=== PATIENT | female | born 1950 | race Caucasian/White ===

== ENCOUNTER 2023-02-24 14:16 | Inpatient (IN) | payer MEDICARE, OTHER ==
[2023-02-24 16:38] VITALS: BMI 27.6
[2023-02-24] MEDS ORDERED: Acetaminophen 325 MG TAB PO PRN (16:46)
[2023-02-24] MEDS ORDERED: Acetaminophen 650 MG Suppository PR PRN (16:46)
[2023-02-24] MEDS ORDERED: Ondansetron PF 4 MG/2 ML Vial IVP PRN (16:46)
[2023-02-24] MEDS ORDERED: Ondansetron ODT 4 MG TAB PO PRN ×2 (16:46→17:55)
[2023-02-24] MEDS ORDERED: Acetaminophen/Codeine 30-300mg Tablet PO PRN (17:55)
[2023-02-24] MEDS ORDERED: EPOETIN ALFA-EPBX (ESRD) 40,000 UNITS/ML VIAL SC SCH (20:00)
[2023-02-24] MEDS: Rosuvastatin 10 MG TAB PO SCH (20:17)
[2023-02-24] MEDS: Carvedilol 25 MG TAB PO SCH (20:17)
[2023-02-24] MEDS: Tacrolimus 1 MG CAP PO SCH (20:17)
[2023-02-24] MEDS ORDERED: Lorazepam 1 MG TAB PO SCH (21:00)
[2023-02-25 01:23] LABS: Troponin I 0.119 ng/mL (< 0.028)
[2023-02-25 05:55] LABS: Hematocrit 24.4 % (36.0-47.0); Hemoglobin 8.5 g/dL (12.0-16.0); Mean Corpuscular HGB CONC 34.8 g/dL (32.0-36.0); Mean Corpuscular Hemoglobin 33.9 pg (27.0-31.0); Mean Platelet Volume 12.1 fL (7.4-10.4); Platelet Count 99 10x3/uL (130-400); RBC Distribution Width 21.6 % (11.5-14.5); Red Blood Cell (RBC) Count 2.51 mill/uL (4.20-5.40); White Blood Cell (WBC) Count 13.1 10x3/uL (4.8-10.8)
[2023-02-25 06:05] LABS: Manual Diff?? YES
[2023-02-25 06:06] LABS: Delete Auto Diff?? YES; Mean Corpuscular Volume 97.2 fl (78.0-98.0)
[2023-02-25 06:18] LABS: Anion Gap 12 mmol/L (10-20); Calc. Creatinine Clearance 35 mL/min (70-130); Calcium 9.1 mg/dL (7.8-10.44); Carbon Dioxide 21 mmol/L (23-31); Chloride 107 mmol/L (98-107); Estimated GFR 32; Glucose 127 mg/dL (83-110); Potassium 4.2 mmol/L (3.5-5.1); Sodium 136 mmol/L (136-145)
[2023-02-25 06:24] LABS: Troponin I 0.112 ng/mL (< 0.028)
[2023-02-25 06:29] LABS: Anisocytosis MODERATE=16-30 cells HPF (0-5); CellaVision Operator ID lab.sh2; Lymphocytes 5 % (21-51); Monocytes 4 % (0-10); Neutrophil 91 % (42-75); Ovalocytes SLIGHT = 2-5 cells HPF (0-1); Platelet Adequacy Comment Platelets Decreased; Polychromasia MODERATE = 3-4 cells HPF (0-2); Total Cell Count 100
[2023-02-25 06:31] LABS: BUN (Urea Nitrogen) 116 mg/dL (9.8-20.1)
[2023-02-25] MEDS: Furosemide 40 MG TAB PO SCH (08:06)
[2023-02-25] MEDS: Carvedilol 25 MG TAB PO SCH ×2 (08:06→20:16)
[2023-02-25] MEDS: predniSONE 5 MG TAB PO SCH (08:06)
[2023-02-25] MEDS: Tacrolimus 1 MG CAP PO SCH ×2 (08:06→20:16)
[2023-02-25] MEDS: Calcium Carbonate 500 MG TAB PO SCH (09:14)
[2023-02-25] MEDS: Rosuvastatin 10 MG TAB PO SCH (20:16)
[2023-02-25] MEDS ORDERED: traZODone HCl 50 MG TAB PO PRN (22:02)
[2023-02-26 04:46] LABS: Hematocrit 24.3 % (36.0-47.0); Hemoglobin 8.6 g/dL (12.0-16.0); Mean Corpuscular HGB CONC 35.4 g/dL (32.0-36.0); Mean Corpuscular Hemoglobin 33.7 pg (27.0-31.0); Mean Corpuscular Volume 95.3 fl (78.0-98.0); Mean Platelet Volume 11.4 fL (7.4-10.4); Platelet Count 90 10x3/uL (130-400); RBC Distribution Width 20.3 % (11.5-14.5); Red Blood Cell (RBC) Count 2.55 mill/uL (4.20-5.40); White Blood Cell (WBC) Count 16.2 10x3/uL (4.8-10.8)
[2023-02-26 05:25] LABS: Delete Auto Diff?? YES; Manual Diff?? YES
[2023-02-26 06:13] LABS: Anisocytosis SLIGHT = 6-15 cells HPF (0-5); Band 4 % (5-11); CellaVision Operator ID lab.abc; Large Platelets 1.9 % (0-5); Lymphocytes 4 % (21-51); Metamyelocyte 3 % (0-0); Myelocyte 2 % (0-0); Neutrophil 87 % (42-75); Nucleated RBC (Manual Ct) 1 % (0); Platelet Adequacy Comment Platelets Decreased; Smudge Cells 2.9 %; Total Cell Count 103
[2023-02-26] MEDS ORDERED: Azithromycin 250 MG TAB PO SCH (09:00)
[2023-02-26] MEDS: predniSONE 5 MG TAB PO SCH (09:31)
[2023-02-26] MEDS: Carvedilol 25 MG TAB PO SCH (09:31)
[2023-02-26] MEDS: Tacrolimus 1 MG CAP PO SCH (09:32)
[2023-02-26] MEDS: Calcium Carbonate 500 MG TAB PO SCH (09:32)
[2023-02-26] MEDS: Furosemide 40 MG TAB PO SCH (09:33)
[2023-02-26 12:12] VITALS: BP 106/54; TEMP 97.6
[2023-02-27] MEDS ORDERED: Fluconazole 100 MG TAB PO SCH (09:00)
== END 2023-02-26 14:15 | disposition home or self-care (01) | DRG 812 ==
LOC: 2SW 14:16 → EDBD 14:16 → OBSVTOIN 02-25 15:30
PROVIDERS: ADMIT Hospitalist; ATTEND Hospitalist
PROC: 30233N1 Transfusion of Nonautologous Red Blood Cells into Peripheral Vein, Percutaneous Approach (ICD-10-PCS; principal; 2023-02-24)
DX: D58.9 Hereditary hemolytic anemia, unspecified (principal); I24.89 Other forms of acute ischemic heart disease; Z94.2 Lung transplant status; I5A Non-ischemic myocardial injury (non-traumatic); R53.1 Weakness; Z79.899 Other long term (current) drug therapy; Z88.8 Allergy status to other drugs, medicaments and biological substances
CPT/HCPCS: 36415; 36430; 72170; 80048; 84484; 85025; 86850; 86900; 86901; 96372; G0378; J7507; J7512; P9016; Q5105